=== PATIENT | female | born 1995 | race Two or more races ===

== ENCOUNTER 2023-03-24 09:03 | Emergency (ER) | payer MEDICAID ==
[~2023-03-24] VITALS: Ht 157.5 cm; Wt 63.6 kg
[~2023-03-24 09:03] MED LIST: ERY05OO OP
[2023-03-24 10:25] LABS: Albumin 4.1 g/dL (3.2-4.8); Alkaline Phosphatase 73 U/L (46-116); Aspartate Aminotransferase 11 U/L (13-40); BUN/Creatinine Ratio 10.6 (10.0-20.0); Bilirubin, Total 0.3 mg/dL (0.2-1.0); Blood Urea Nitrogen 7 mg/dL (9-23); Calcium 8.5 mg/dL (8.5-10.1); Carbon Dioxide 25 mmol/L (20-30); Glucose 91 mg/dL (74-106); Total Protein 6.8 g/dL (5.7-8.2)
[2023-03-24 10:28] LABS: Alanine Aminotransferase < 9 U/L (7-40)
[2023-03-24 10:37] LABS: Anion Gap 7 (5-15); Chloride 107 mmol/L (98-107); Potassium 3.6 mmol/L (3.5-5.1); Sodium 139 mmol/L (136-145)
[2023-03-24 10:38] LABS: Basophils # (auto) 0 10 ^3/uL (0-0.2); Basophils % (auto) 0.3 % (0.0-2.0); Eosinophils # (auto) 0 10 ^3/uL (0-0.8); Eosinophils % (auto) 0.2 % (0.0-7.0); Hematocrit 34.7 % (36.0-46.0); Hemoglobin 11.7 g/dL (12.2-16.2); Lymphocytes # (auto) 1.1 10 ^3/uL (0.4-5.4); Lymphocytes % (auto) 16.2 % (10.0-50.0); Mean Corpuscular Hemoglobin 29.7 pg (28.0-32.0); Mean Corpuscular Hgb Conc. 33.7 g/dL (32.0-36.0); Monocytes # (auto) 0.4 10 ^3/uL (0-1.3); Monocytes % (auto) 6.6 % (0.0-12.0); Neutrophils % (auto) 76.7 % (37.0-80.0); Red Blood Cells 3.95 10^6/uL (4.0-5.20); Red Cell Distribution Width 13.6 % (11.8-14.3); White Blood Cell 6.6 10^3/uL (4.4-10.8)
[2023-03-24 11:48] LABS: Amphetamine Screen, Urine Neg (NEGATIVE)
[2023-03-24 11:50] LABS: Barbiturate Scree,Urine Neg (NEGATIVE)
[2023-03-24 11:51] LABS: Benzodiazephine Screen, Urine Neg (NEGATIVE); Cannabinoid Screen, Urine Neg (NEGATIVE); Cocaine Screen, Urine Neg (NEGATIVE); Opiate Scree,Urine Neg (NEGATIVE); Phencyclidine Screen, Urine Neg (NEGATIVE)
[2023-03-24 12:22] VITALS: PULSE 107; RESP 11; O2SAT 98
[2023-03-24 12:30] LABS: Urine Bacteria NONE SEEN /hpf (None Seen); Urine Blood 3+ /uL (Negative); Urine Clarity Clear (Clear); Urine Color Colorless (Yellow); Urine Protein, UAD Negative (Negative); Urine Specific Gravity 1.015 (1.001-1.035); Urine Urobilinogen Normal (Negative); Urine WBC 3 /hpf (0 - 5); Urine pH 5.5 (5.0-8.0)
[2023-03-24] MEDS ORDERED: KEP500T PO (12:52)
[2023-03-24] MEDS ORDERED: PENI500T2 PO (12:53)
[2023-03-24 13:43] VITALS: BP 105/64; PULSE 102; RESP 19; O2SAT 97
== END 2023-03-24 15:34 | disposition home or self-care (01) ==
LOC: EDBD 09:03 → ER 09:03
DX: S02.5XXA Fracture of tooth (traumatic), initial encounter for closed fracture (principal); R10.2 Pelvic and perineal pain; S00.03XA Contusion of scalp, initial encounter; G40.909 Epilepsy, unspecified, not intractable, without status epilepticus; X58.XXXA Exposure to other specified factors, initial encounter; Y93.89 Activity, other specified; Y92.89 Other specified places as the place of occurrence of the external cause; Y99.8 Other external cause status
CPT/HCPCS: 36415; 70450; 80053; 80307; 81001; 84702; 85025; 96365; 99285; J1953; J7060

== ENCOUNTER 2023-07-31 02:44 | Emergency (ER) | payer MEDICAID ==
[~2023-07-31] VITALS: Ht 157.5 cm; Wt 52.2 kg
[~2023-07-31 02:44] MED LIST changes: +KEP500T PO; +PENI500T2 PO
[2023-07-31 03:40] LABS: Urine Bacteria NONE SEEN /hpf (None Seen); Urine Blood Negative /uL (Negative); Urine Clarity Clear (Clear); Urine Color Colorless (Yellow); Urine Protein, UAD Negative (Negative); Urine Specific Gravity 1.007 (1.001-1.035); Urine Urobilinogen Normal (Negative); Urine WBC 1 /hpf (0 - 5); Urine pH 6.5 (5.0-8.0)
[2023-07-31 04:09] LABS: Basophils # (auto) 0 10 ^3/uL (0-0.2); Basophils % (auto) 0.3 % (0.0-2.0); Eosinophils # (auto) 0 10 ^3/uL (0-0.8); Eosinophils % (auto) 0.2 % (0.0-7.0); Hemoglobin 11.4 g/dL (12.2-16.2); Lymphocytes # (auto) 2.7 10 ^3/uL (0.4-5.4); Lymphocytes % (auto) 31.2 % (10.0-50.0); Mean Corpuscular Hemoglobin 29.7 pg (28.0-32.0); Mean Corpuscular Hgb Conc. 33.4 g/dL (32.0-36.0); Monocytes # (auto) 0.7 10 ^3/uL (0-1.3); Monocytes % (auto) 8.2 % (0.0-12.0); Neutrophils # (auto) 5.3 10 ^3/uL (1.6-8.6); Neutrophils % (auto) 60.1 % (37.0-80.0); Red Blood Cells 3.82 10^6/uL (4.0-5.20); Red Cell Distribution Width 13.9 % (11.8-14.3); White Blood Cell 8.8 10^3/uL (4.4-10.8)
[2023-07-31 04:21] LABS: Albumin 3.9 g/dL (3.2-4.8); Alkaline Phosphatase 50 U/L (46-116); Anion Gap 6 (5-15); Aspartate Aminotransferase 11 U/L (13-40); BUN/Creatinine Ratio 10.4 (10.0-20.0); Bilirubin, Total 0.4 mg/dL (0.2-1.0); Blood Urea Nitrogen 5 mg/dL (9-23); Calcium 8.9 mg/dL (8.7-10.4); Carbon Dioxide 24 mmol/L (20-30); Chloride 112 mmol/L (98-107); Glucose 101 mg/dL (74-106); Lipase 42 U/L (12-53); Potassium 3.5 mmol/L (3.5-5.1); Sodium 142 mmol/L (136-145); Total Protein 6.3 g/dL (5.7-8.2)
[2023-07-31 04:30] LABS: Alanine Aminotransferase < 9 U/L (7-40)
[2023-07-31] MEDS ORDERED: TRAM50TA2 PO (05:15)
[2023-07-31 05:45] VITALS: BP 114/76; PULSE 89; RESP 18; TEMP 98; O2SAT 100
== END 2023-07-31 05:48 | disposition home or self-care (01) ==
LOC: ER 02:44
DX: R10.2 Pelvic and perineal pain (principal); Z79.2 Long term (current) use of antibiotics; Z79.899 Other long term (current) drug therapy
CPT/HCPCS: 36415; 74176; 80053; 81001; 83690; 85025

== ENCOUNTER 2023-09-06 10:44 | Emergency (ER) | payer MEDICAID ==
[~2023-09-06] VITALS: Ht 157.5 cm; Wt 115.0 kg
[~2023-09-06 10:44] MED LIST changes: +TRAM50TA2 PO
[2023-09-06 11:00] VITALS: BP 127/78; PULSE 101; RESP 16; TEMP 98.3; O2SAT 99
[2023-09-06 11:33] LABS: Urine Bacteria NONE SEEN /hpf (None Seen); Urine Blood Negative /uL (Negative); Urine Clarity Clear (Clear); Urine Color Yellow (Yellow); Urine Protein, UAD TRACE (Negative); Urine Specific Gravity 1.023 (1.001-1.035); Urine WBC 2 /hpf (0 - 5)
== END 2023-09-06 14:17 | disposition home or self-care (01) ==
LOC: ER 10:44
DX: O23.592 Infection of other part of genital tract in pregnancy, second trimester (principal); Z3A.15 15 weeks gestation of pregnancy; R10.2 Pelvic and perineal pain
CPT/HCPCS: 36415; 76801; 81001; 81025; 84702

== ENCOUNTER → 2023-11-08 | Emergency (ER) | payer MEDICAID ==
[~2023-11-08] VITALS: Ht 157.5 cm; Wt 66.3 kg
[2023-11-08 19:39] VITALS: BP 141/85; PULSE 98; RESP 18; O2SAT 99
== END | disposition left against medical advice (07) ==
LOC: ER 19:01
DX: R05.9 Cough, unspecified (principal); Z53.21 Procedure and treatment not carried out due to patient leaving prior to being seen by health care provider

== ENCOUNTER 2023-11-15 17:11 | Emergency (ER) | payer MEDICAID ==
[~2023-11-15] VITALS: Ht 157.5 cm; Wt 66.5 kg
[2023-11-15 19:26] LABS: Rapid Influenza A Negative (Negative); Rapid Influenza B Negative (Negative)
[2023-11-15 19:32] LABS: COVID19 ANTIGEN SOFIA FIA NEGATIVE (NEGATIVE)
[2023-11-15] MEDS ORDERED: PRED20TA2 PO (22:29)
[2023-11-15] MEDS ORDERED: AMOX875T4 PO (22:29)
[2023-11-15] MEDS ORDERED: ACET500T58 PO (22:29)
[2023-11-16 00:09] VITALS: BP 132/81; PULSE 89; RESP 16; TEMP 98.4
[2023-11-16 01:47] VITALS: O2SAT 97
== END 2023-11-16 01:52 | disposition home or self-care (01) ==
LOC: ER 17:11
DX: J20.9 Acute bronchitis, unspecified (principal); N60.01 Solitary cyst of right breast; Z20.822 Contact with and (suspected) exposure to COVID-19
CPT/HCPCS: 36415; 76642; 87426; 87804

== ENCOUNTER 2025-02-20 17:38 | Emergency (ER) | payer MEDICAID ==
[~2025-02-20] VITALS: Ht 157.5 cm; Wt 71.2 kg
[~2025-02-20 17:38] MED LIST changes: +ACET500T58 PO; +AMOX875T4 PO; +PRED20TA2 PO
--- NOTE | 2025-02-20 18:35 | DVH ---
CHEST RADIOGRAPH Indication: CP/SOB Technique: Single frontal view of the chest was obtained Comparison: None FINDINGS: Lines and Tubes: None Lungs: No focal consolidation. Pleura: No effusion. No pneumothorax. Cardiomediastinal contours: Unremarkable Bones: No acute osseous abnormality. IMPRESSION: 1. No acute cardiopulmonary disease.
--- NOTE | 2025-02-20 18:47 | ECG ---
[facility] Test Date: 2025-02-20 Test Time: 17:45:08 Pat Name: BOLIVAR ABDALLA Department: ED Room: Gender: F [employer] Supervisor: MERRY : 1995 Requested By: EMERGENCY EMERGENCY Order Number: [id number] Reading MD: Ammon Barillas Measurements Intervals [place] Rate: 81 P: 52 [place]: 145 QRS: 69 QRSD: 90 T: 36 QT: 362 QTc: 421 Interpretive Statements Sinus rhythm Electronically Signed On 02-25-2025 14:27:15 PDT by Ammon Barillas Please click the below link to view image of tracing.
--- NOTE | 2025-02-20 18:57 | ED.PDOC ---
HPI Comments HPI: 29-year-old female came to ER for chest pains. Patient states four days ago, she started experiencing chest pains, midsternal, constant, pressure associated with shortness a breath. Five days ago, she was seen at the urgent care for a "lump" at her midback area, and started on antibiotics and steroids Patient states her shortness of breath is worse when she lays flat. Initial Vitals BP: 140/83 HR: 81 RR: 16 O2: 99% Temp: 98.1 F Past Medical History:. Seizures Past Surgical History: None Social History: Denies ETOH, smoking, and drug use. Medications: Keppra Allergies: None HPI: Poor Historian. REVIEW OF SYSTEMS: CONSTITUTIONAL: Denies acute: fever, diaphoresis, chills, generalized weakness. HEAD: Denies acute: headache, photophobia Eyes: Denies acute: Double vision, vision loss, eye pain, eye discharge. EARS: Denies acute: tinnitus, hearing loss, ear discharge, ear pain, THROAT: Denies acute: sore throat, swelling, difficulty swallowing , pain with swallowing, change in voice. NECK: Denies acute: neck pain, neck swelling, stiff neck. HEART: Denies acute : palpitations, LUNGS: Denies acute: wheezing, cough, hemoptysis ABDOMEN: Denies acute: abdominal pain, Nausea, Vomiting, diarrhea, melena , hematemesis, hematochezia SKIN: Denies acute: rash, redness, lesions, itchiness. EXTREMITIES: Denies acute: calf pain, numbness, tingling, weakness, denies pain in extremity. Denies acute: Low back pain. Neuro: Denies acute: focal neurological deficit, motor or sensory focal neurological deficit, tremors, seizure like activity, confusion, dizziness, change in mental status, loss of bowel or bladder function, cauda equina like symptoms. : Denies acute: dysuria, hematuria, flank pain, increase in urinary frequency. PSYCH: Denies acute: hallucination, suicidal ideation, homicidal ideation. FEMALE: Denies acute: abnormal vaginal bleeding, foul odor, unusual discharge. PHYSICAL EXAM: General: ----mild----acute distress, awake and alert. Head: normocephalic, atraumatic. Neck: supple, trachea is midline, no swelling. Throat: Normal phonation. Eyes:, no erythema, no purulent discharge, no proptosis, no icterus. Heart: regular rate, regular rhythm, no significant murmur appreciated. Lungs: no apparent respiratory distress, Able to speak in full sentences. No wheezing, no rhonchi, no crackles. No stridors Clear to auscultation bilaterally. Abdomen: non tender to palpation, non distended, soft, no guarding, no rebound, + bowel sounds. Neuro: Awake, Alert, oriented to name, self, situation, follows commands GCS=15. Speech is normal. Skin: no petechia, no purpura, no cyanosis, non-pale, not jaundice. Lower extremities: --no - Pitting edema no deformity, no focal swelling, no calf TTP. Makes eye contact. moves all four extremities. Face: no apparent facial droop. No CVA tenderness to percussion bilaterally. Ambulating in the ED independently. ED COURSE: DISCLAIMER: This medical document was created using an electronic medical record system with voice recognition software and computerized dictation system. Although this document has been carefully reviewed, there might still be some phonetic and typographical errors. Occasional wrong-word or "sound-alike" substitutions may have occurred due to the inherent limitations of voice recognition software. These areas are purely typographical due to imperfections of the software programs and do not reflect any compromise in the patient's medical care. Please read the chart carefully and recognize, using context, where these substitutions have occurred. Chief Complaint: Chest Pain Time Seen by MD: 18:55 Primary Care Provider: SHRUTHI Reviewed Notes: Allergies Allergies: Coded Allergies: NO KNOWN ALLERGIES (Unverified , 01/21/23) Home Meds Active Scripts Acetaminophen (Acetaminophen) 500 Mg Tab, 500 MG PO Q4HPRN, #30 TAB 0 Refills Prov:TAYO GRIFFITH 11/15/23 Prednisone (Prednisone) 20 Mg Tab, 20 MG PO BID for 5 Days, #10 TAB 0 Refills Prov:TAYO GRIFFITH 11/15/23 Amoxicillin & Pot Clavulanate (Amoxicillin/Potassium Cla) 875 Mg Tab, 1 TAB PO BID for 7 Days, #14 TAB 0 Refills Prov:TAYO GRIFFITH 11/15/23 Tramadol Hcl (Tramadol Hcl) 50 Mg Tab, 50 MG PO Q8HP PRN for 5 Days, #15 TAB Prov:FRANCESCO RAINES MD 07/31/23 Penicillin V Potassium (Veetids) 500 Mg Tab, 500 MG PO QID for 5 Days, #20 TAB Prov:SACHA AGUILLON MD 03/24/23 Levetiracetam (KEPPRA TABLET) 500 Mg Tb, 500 MG PO BID for 60 Days, #120 TAB Prov:SACHA AGUILLON MD 03/24/23 Erythromycin (Erythromycin) 5 Mg/Gm Oin, 1 STRIP OP QID for 7 Days, #1 OIN 0 Refills 1/2 inch ribbon to eye 4-6 times daily for 7 days Prov:KARLOS REEVES 01/21/23 Information Source: Patient Mode of Arrival: Ambulatory Severity: Moderate Timing: Days Past Medical History PAST MEDICAL HISTORY: Seizures Surgical History: Denies all surgeries INFECTIOUS DISEASES PHYSICIAN History: Denies all INFECTIOUS DISEASES PHYSICIAN Hx Family History Family History: Reviewed,noncontributory to illness Social History Smoker: Non-Smoker Alcohol: Denies ETOH Use Drugs: Denies Drug Use Lives In: Home EKG EKG : Pulse Rate (adult): 81 Cardiac Rhythm: NSR Was a procedure done? Was a procedure done?: No X-Ray, Labs, Meds, VS Vital Signs Date Time Temp Pulse Resp B/P (MAP) Pulse Ox O2 Delivery O2 Flow Rate FiO2 02/20/25 18:57 81 02/20/25 18:51 74 02/20/25 17:49 81 02/20/25 17:40 97.7 89 16 140/83 99 97.7 Lab Test 02/20/25 19:46 02/20/25 18:41 Range/Units Troponin I High Sensitivity Pending < 3 L </=34 ng/L White Blood Count 8.1 4.4-10.8 10^3/uL Red Blood Count 5.04 4.0-5.20 10^6/uL Hemoglobin 11.2 L 12.2-16.2 g/dL Hematocrit 35.9 L 36.0-46.0 % Mean Corpuscular Volume 71.3 L 80.0-100.0 fL Mean Corpuscular Hemoglobin 22.2 L 28.0-32.0 pg Mean Corpuscular Hemoglobin Concent 31.1 L 32.0-36.0 g/dL Red Cell Distribution Width 19.6 H 11.8-14.3 % Platelet Count 406 140-450 10^3/uL Mean Platelet Volume 7.8 6.9-10.8 fL Neutrophils (%) (Auto) 52.5 37.0-80.0 % Lymphocytes (%) (Auto) 37.4 10.0-50.0 % Monocytes (%) (Auto) 8.7 0.0-12.0 % Eosinophils (%) (Auto) 0.7 0.0-7.0 % Basophils (%) (Auto) 0.7 0.0-2.0 % Neutrophils # (Auto) 4.3 1.6-8.6 10 ^3/uL Lymphocytes # (Auto) 3.0 0.4-5.4 10 ^3/uL Monocytes # (Auto) 0.7 0-1.3 10 ^3/uL Eosinophils # (Auto) 0.1 0-0.8 10 ^3/uL Basophils # (Auto) 0.1 0-0.2 10 ^3/uL Nucleated Red Blood Cells 0.0 % D-Dimer, Quantitative 0.21 0.0-0.49 mg/L FEU Sodium Level 139 136-145 mmol/L Potassium Level 4.8 3.5-5.1 mmol/L Chloride Level 104 98-107 mmol/L Carbon Dioxide Level 28 20-31 mmol/L Anion Gap 7 5-15 Blood Urea Nitrogen 24 H 9-23 mg/dL Creatinine 0.92 0.550-1.02 mg/dL Glomerular Filtration Rate Calc 86 >90 mL/min BUN/Creatinine Ratio 26.1 H 10.0-20.0 Serum Glucose 86 74-106 mg/dL Calcium Level 9.9 8.7-10.4 mg/dL Total Bilirubin 0.3 0.2-1.0 mg/dL Aspartate Amino Transferase (AST) 12 L 13-40 U/L Alanine Aminotransferase (ALT) 13 7-40 U/L Alkaline Phosphatase 117 H 46-116 U/L Total Protein 7.8 5.7-8.2 g/dL Albumin 4.7 3.2-4.8 g/dL [place] [address] Ph: [phone] DIAGNOSTIC IMAGING Diagnostic Imaging Report : [id number] Signed PATIENT: BOLIVAR ABDALLA ACCT: [id number] UNIT: [id number] : 1995 LOC: ER ROOM / BED: / AGE / SEX: 29 / F ADM STATUS: REG ER SERVICE 07 ORDERING PHYSICIAN: SKY GA DO PROCEDURE(s): CXRP - CHEST PORTABLE REASON: CP/SOB ORDER NUMBER(s): [id number], ACCESSION NUMBER(s): [id number] CHEST RADIOGRAPH Indication: CP/SOB Technique: Single frontal view of the chest was obtained Comparison: None FINDINGS: Lines and Tubes: None Lungs: No focal consolidation. Pleura: No effusion. No pneumothorax. Cardiomediastinal contours: Unremarkable Bones: No acute osseous abnormality. IMPRESSION: 1. No acute cardiopulmonary disease. ATED BY: CONNOR ALCOCER Jr., DO DICTATED DATE/TIME: 02/20/251832 SIGNED BY: CONNOR ALCOCER Jr., SIGNED DATE/TIME: 02/20/251832 CC: Time of 1ST Reevaluation: 18:56 Reevaluation 1ST: Unchanged Patient Education/Counseling: Diagnosis, Treatment Family Education/Counseling: No Family Present SEPSIS Sepsis Screen Date sepsis recognized/suspect: Feb 20, 2025 Time Sepsis recognized/suspect: 1740 Recent Procedure: No On Antibiotic Therapy: No Respiratory Rate >20: No Heart Rate >90: No Temp<36 C (96.8 F) or >38.3 C: No SBP <90 or MAP <65 mmHG: No New Acute Mental Status Change: No Is the patient on CPAP, BIPAP,: No Physician Orders Electrocardigram (02/20/25 18:49) Electrocardigram (02/20/25 20:49) Troponin-I Hs (02/20/25 18:52) Troponin-I Hs (02/20/25 20:52) Demurrage Worker (02/20/25 ) Chest Portable (02/20/25 18:08) Vital Signs Date Time Temp Pulse Resp B/P (MAP) Pulse Ox O2 Delivery O2 Flow Rate FiO2 02/20/25 18:57 81 02/20/25 18:51 74 02/20/25 17:49 81 02/20/25 17:40 97.7 89 16 140/83 99 97.7 Laboratory Tests Test 02/20/25 18:41 White Blood Count 8.1 10^3/uL (4.4-10.8) Departure 1 Departure Time of Disposition: 20:01 Impression: Primary Impression: Chest pain Additional Impression: Anemia Disposition: 01 HOME / SELF CARE / HOMELESS Condition: Stable Additional Instructions: Additional instructions: You MUST follow-up with your primary care/family doctor in 1 to 2 days. If you are unable to see your primary care/family doctor, please return to our emergency room for re-assessment and re-evaluation in 1 to 2 days. Return to the emergency room here in our facility or to the nearest ER [facility] if your symptoms change or worsen. CONSULTATIONS: you MUST Follow-up for consultation as soon as possible with: --cardiology in 1-2 days. Please call for appointment You MUST call the consultants office yourself to make an appointment. You may need to arrange that through your insurance and/or your primary/family doctor. If you are unable to see the storage consultant in 1 to 2 days, you must return to our emergency room (or any other ER of your choice) for re-assessment and re- evaluation. Adequate fluid hydration. Discharged With: Self Critical Care Note Critical Care Time?: No Heart Score Heart Score: Heart Score Response (Comments) Value History Slightly Suspicious 0 EKG Normal 0 Age <45 0 Risk Factors No known risk factors 0 Troponin Normal limit 0 Total 0 I personally scribed for SKY GA DO ([email or web address]) on 02/20/25 at 18:57. Electronically submitted by Adam Mcnair ([employer]). I personally scribed for SKY GA DO ([email or web address]) on 02/20/25 at 19:13. Electronically submitted by Adam Mcnair ([employer]). I personally scribed for SKY GA DO ([email or web address]) on 02/20/25 at 19:28. Electronically submitted by Adam Mcnair ([employer]). I personally scribed for SKY GA DO ([email or web address]) on 02/20/25 at 19:47. Electronically submitted by Adam Mcnair ([email or web address]). SKY GA DO Feb 20, 2025 18:57
[2025-02-20 19:04] LABS: Hematocrit 35.9 % (36.0-46.0); Hemoglobin 11.2 g/dL (12.2-16.2); Mean Corpuscular Hemoglobin 22.2 pg (28.0-32.0); Mean Corpuscular Volume 71.3 fL (80.0-100.0); Nucleated Red Blood Cells % 0.0 %
[2025-02-20 19:24] LABS: Alanine Aminotransferase 13 U/L (7-40); Anion Gap 7 (5-15); BUN/Creatinine Ratio 26.1 (10.0-20.0); Calcium 9.9 mg/dL (8.7-10.4); Carbon Dioxide 28 mmol/L (20-31); Chloride 104 mmol/L (98-107); Glucose 86 mg/dL (74-106); Potassium 4.8 mmol/L (3.5-5.1); Sodium 139 mmol/L (136-145); Total Protein 7.8 g/dL (5.7-8.2)
[2025-02-20 19:25] LABS: Albumin 4.7 g/dL (3.2-4.8); Alkaline Phosphatase 117 U/L (46-116); Bilirubin, Total 0.3 mg/dL (0.2-1.0); Blood Urea Nitrogen 24 mg/dL (9-23)
[2025-02-20 21:21] VITALS: BP 119/72; PULSE 81; RESP 18; TEMP 97.5; O2SAT 98
--- NOTE | 2025-02-22 11:13 | ECG ---
[facility] Test Date: 2025-02-20 Test Time: 18:51:47 Pat Name: BOLIVAR ABDALLA Department: Room: Gender: F [employer]ber Selector: ARUN : 1995 Requested By: EMERGENCY EMERGENCY Order Number: [id number] Reading MD: Ammon Barillas Measurements Intervals [place] Rate: 74 P: 63 [place]: 152 QRS: 66 QRSD: 93 T: 38 QT: 378 QTc: 420 Interpretive Statements Sinus rhythm Baseline wander in lead(s) I,III,aVL Electronically Signed On 02-25-2025 14:27:43 PDT by Ammon Barillas Please click the below link to view image of tracing.
== END 2025-02-20 21:26 | disposition home or self-care (01) ==
LOC: ER 17:38
DX: R07.89 Other chest pain (principal); D64.9 Anemia, unspecified; Z79.899 Other long term (current) drug therapy; Z79.52 Long term (current) use of systemic steroids
CPT/HCPCS: 36415; 71045; 80053; 84484; 85025; 85379; 93005